=== PATIENT | male | born 1985 | race Caucasian/White ===

== ENCOUNTER 2017-12-24 18:59 | Inpatient (IN) | payer OTHER ==
[~2017-12-24] VITALS: Ht 188 cm; Wt 82.0 kg
[2017-12-24 19:10] VITALS: BP 154/84; PULSE 106; RESP 18; TEMP 98.6; O2SAT 99
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
[2017-12-24] MEDS ORDERED: KETOROLAC TROMETHAMINE 60 MG/2 ML (IM) VIAL IM ONE (20:15)
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
[2017-12-24] MEDS ORDERED: SENNOSIDES 8.6 MG TAB PO PRN (22:45)
[2017-12-24] MEDS ORDERED: BISACODYL 10 MG SUPP RECTAL PRN (22:45)
[2017-12-24] MEDS ORDERED: MAGNESIUM HYDROXIDE SUSP 30 ML CUP PO PRN (22:45)
[2017-12-24] MEDS ORDERED: SODIUM CHLORIDE 0.9% FLUSH 10 ML FLUSH IV FLUSH PRN (22:45)
[2017-12-24] MEDS ORDERED: LACTULOSE SYRUP 20 GM/30 ML CUP PO PRN (22:45)
[2017-12-24] MEDS ORDERED: ACETAMINOPHEN 1000 MG/100 ML 100 ML IV PRN (22:45)
[2017-12-24 22:49] LABS: BICARBONATE 22.3 MEQ/L (21.0-32.0); CALCIUM 9.6 MG/DL (8.5-10.1); CREATININE 1.12 MG/DL (0.60-1.30)
[2017-12-24 22:52] LABS: AUTOMATED NEUTROPHIL # 14.1 TH/MM3 (1.8-7.7); BASOPHIL % 0.3 % (0.0-2.0); EOSINOPHIL % 0.1 % (0.0-4.0); HEMATOCRIT 46.1 % (39.0-51.0); HEMOGLOBIN 15.4 GM/DL (13.0-17.0); LYMPH % 7.7 % (9.0-44.0); LYMPHOCYTE # 1.3 TH/MM3 (1.0-4.8); MEAN CELL VOLUME 80.8 FL (80.0-100.0); MEAN CORPUSCULAR HGB CONC 33.5 % (32.0-36.0); MEAN PLATELET VOLUME 7.9 FL (7.0-11.0); MONO % 5.3 % (0.0-8.0); MONOCYTE # 0.9 TH/MM3 (0-0.9); NEUT % 86.6 % (16.0-70.0); PLATELET COUNT 341 TH/MM3 (150-450); RED BLOOD COUNT 5.71 MIL/MM3 (4.50-5.90); WHITE BLOOD COUNT 16.3 TH/MM3 (4.0-11.0)
[2017-12-24] MEDS ORDERED: MORPHINE SULFATE 4 MG/ML INJ IV PUSH PRN (23:00)
[2017-12-24 23:13] LABS: INTERNATIONAL NORMALIZED RATIO 1.1 RATIO
[2017-12-24 23:37] VITALS: BP 154/94; PULSE 89; RESP 18; TEMP 97.1; O2SAT 98
[2017-12-24] MEDS ORDERED: LACTATED RINGER'S 1000 ML IV PRN (23:45)
[2017-12-24] MEDS ORDERED: SODIUM CHLORID 0.9% 500 ML IV PRN (23:45)
[2017-12-24] MEDS ORDERED: POVIDONE IODINE 5% (ANTISEPSIS KIT) 4 APPLICATIONS EACH NARE PRN (23:45)
[2017-12-24] MEDS ORDERED: CHLORHEXIDINE GLUCONATE 2 % 1 PACK (2 CLOTHS) TOPICAL PRN (23:45)
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
[2017-12-25] MEDS: SODIUM CHLOR 0.9% 1000 ML INJ 1,000 ML IV SCH ×3 (00:33→18:40)
[2017-12-25] MEDS: MORPHINE SULFATE 4 MG/ML INJ IV PUSH PRN ×6 (00:44→23:22)
[2017-12-25 03:35] VITALS: BP 151/83; PULSE 81; RESP 18; TEMP 98.6; O2SAT 98
[2017-12-25] MEDS: SODIUM CHLORIDE 0.9% FLUSH 10 ML FLUSH IV FLUSH SCH ×2 (07:28→20:30)
[2017-12-25] MEDS: DOCUSATE SODIUM 50 MG/SENNA 8.6 MG TAB PO SCH ×2 (07:29→20:28)
[2017-12-25 08:00] VITALS: BP 122/70; PULSE 79; RESP 16; TEMP 97.7; O2SAT 99
[2017-12-25 08:10] LABS: AUTOMATED NEUTROPHIL # 7.7 TH/MM3 (1.8-7.7); BASOPHIL # 0.1 TH/MM3 (0-0.2); BASOPHIL % 0.5 % (0.0-2.0); EOSINOPHIL # 0.1 TH/MM3 (0-0.4); EOSINOPHIL % 0.5 % (0.0-4.0); HEMATOCRIT 42.9 % (39.0-51.0); HEMOGLOBIN 14.3 GM/DL (13.0-17.0); LYMPH % 16.5 % (9.0-44.0); LYMPHOCYTE # 1.8 TH/MM3 (1.0-4.8); MEAN CELL VOLUME 82.5 FL (80.0-100.0); MEAN CORPUSCULAR HEMOGLOBIN 27.5 PG (27.0-34.0); MEAN CORPUSCULAR HGB CONC 33.3 % (32.0-36.0); MEAN PLATELET VOLUME 7.9 FL (7.0-11.0); MONO % 12.8 % (0.0-8.0); MONOCYTE # 1.4 TH/MM3 (0-0.9); NEUT % 69.7 % (16.0-70.0); PLATELET COUNT 287 TH/MM3 (150-450); RED CELL DISTRIBUTION WIDTH 13.6 % (11.6-17.2)
[2017-12-25 08:54] LABS: ALBUMIN 3.8 GM/DL (3.4-5.0); AST (GOT) 9 U/L (15-37); BICARBONATE 24.9 MEQ/L (21.0-32.0); BLOOD UREA NITROGEN 9 MG/DL (7-18); CALCIUM 9.1 MG/DL (8.5-10.1); CHLORIDE 108 MEQ/L (98-107); CREATININE 1.01 MG/DL (0.60-1.30); GLOMERULAR FILTRATION RATE 86 ML/MIN (>89); GLUCOSE,RANDOM 85 MG/DL (74-106); SODIUM (NA) 142 MEQ/L (136-145)
[2017-12-25 09:00] LABS: ALKALINE PHOSPHATASE 65 U/L (45-117); ALT (GPT) 20 U/L (12-78); TOTAL BILIRUBIN ADULT 1.2 MG/DL (0.2-1.0); TOTAL PROTEIN 7.1 GM/DL (6.4-8.2)
[2017-12-25 12:00] VITALS: BP 148/97; PULSE 77; RESP 16; TEMP 97.6; O2SAT 98
[2017-12-25] MEDS: METOCLOPRAMIDE HCL 10 MG/2 ML VIAL IV PUSH PRN (12:48)
[2017-12-25] MEDS ORDERED: ACETAMINOPHEN/HYDROcodone 325 MG/5 MG TAB PO PRN (13:15)
[2017-12-25] MEDS ORDERED: hydrOXYzine HCL 10 MG TAB PO PRN (13:15)
[2017-12-25] MEDS ORDERED: ONDANSETRON ODT 4 MG TAB PO PRN (13:15)
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
[2017-12-25] MEDS: ACETAMINOPHEN/HYDROcodone 325 MG/7.5 MG TAB PO PRN ×2 (14:46→20:30)
[2017-12-25 16:00] VITALS: BP 129/81; PULSE 75; RESP 16; TEMP 98.2; O2SAT 99
[2017-12-25 19:33] VITALS: BP 141/79; PULSE 65; RESP 18; TEMP 98.3; O2SAT 100
[2017-12-25 23:16] VITALS: BP 129/64; PULSE 67; RESP 18; TEMP 98.2; O2SAT 100
[2017-12-26] MEDS: ACETAMINOPHEN/HYDROcodone 325 MG/7.5 MG TAB PO PRN (02:33)
[2017-12-26] MEDS: SODIUM CHLOR 0.9% 1000 ML INJ 1,000 ML IV SCH ×2 (03:23→13:40)
[2017-12-26 04:06] VITALS: BP 120/64; PULSE 68; RESP 18; TEMP 98.4; O2SAT 100
[2017-12-26] MEDS ORDERED: BUPIVACAINE/EPINEPHRINE 0.5% PF 10 ML VIAL ONE (07:18)
[2017-12-26] MEDS: DOCUSATE SODIUM 50 MG/SENNA 8.6 MG TAB PO SCH ×2 (07:18→21:00)
[2017-12-26] MEDS: MORPHINE SULFATE 4 MG/ML INJ IV PUSH PRN ×4 (07:29→20:03)
[2017-12-26] MEDS ORDERED: OXYMETAZOLINE HCL 0.05% 15 ML NASAL SPRAY ONE (07:35)
[2017-12-26] MEDS ORDERED: CHLORHEXIDINE GLUCONATE 0.12% 15 ML CUP ONE (07:40)
[2017-12-26 08:00] VITALS: BP 124/67; PULSE 61; RESP 18; TEMP 98; O2SAT 100
[2017-12-26] MEDS: SODIUM CHLORIDE 0.9% FLUSH 10 ML FLUSH IV FLUSH SCH ×2 (09:00→13:40)
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
[2017-12-26] MEDS ORDERED: ceFAZolin 2 GM PREMIX 50 ML ONE (10:19)
[2017-12-26] MEDS ORDERED: MUPIROCIN 2% OINT 22 GM TUBE ONE (11:14)
[2017-12-26] MEDS ORDERED: LIDOCAINE HCL 1% PF 5 ML SYRINGE OTHER ONE (12:00)
[2017-12-26] MEDS ORDERED: ONDANSETRON HCL 4 MG/2 ML VIAL IV PUSH ONE (12:00)
[2017-12-26] MEDS ORDERED: ESMOLOL HCL 100 MG/10 ML VIAL IV ONE (12:00)
[2017-12-26] MEDS ORDERED: PROPOFOL 200 MG/20 ML AMP IV ONE (12:00)
[2017-12-26] MEDS ORDERED: ROCURONIUM INJ 50 MG/5 ML SYRINGE IV PUSH ONE (12:00)
[2017-12-26] MEDS ORDERED: DEXAMETHASONE SOD PHOS 4 MG/ML VIAL IV ONE (12:00)
[2017-12-26] MEDS ORDERED: *morphine SULFATE 10 MG/ML PERIprocedure ONLY ONE (12:16)
[2017-12-26] MEDS ORDERED: MIDAZOLAM HCL 2 MG/2 ML VIAL ONE (12:25)
[2017-12-26] MEDS ORDERED: DO NOT ADM ANY ANTICOAGULANT DRUGS PRN (12:30)
[2017-12-26] MEDS: METOCLOPRAMIDE HCL 10 MG/2 ML VIAL IV PUSH PRN ×2 (13:39→21:49)
[2017-12-26] MEDS ORDERED: ACETAMINOPHEN 325 MG/10.15 ML UDC PO PRN (16:15)
[2017-12-26] MEDS: oxyCODONE HCL ORAL CONC 5 MG/0.25 ML SYRINGE PO PRN ×2 (16:34→21:48)
[2017-12-26] MEDS: ACETAMINOPHEN 650 MG/20.3 ML UDC PO PRN ×2 (16:35→21:48)
[2017-12-26 20:20] VITALS: BP 143/87; PULSE 89; RESP 18; TEMP 98.3; O2SAT 98
[2017-12-26 23:30] VITALS: BP 132/74; PULSE 77; RESP 18; TEMP 98; O2SAT 96
[2017-12-27] MEDS: MORPHINE SULFATE 4 MG/ML INJ IV PUSH PRN ×2 (00:17→06:00)
[2017-12-27] MEDS: SODIUM CHLOR 0.9% 1000 ML INJ 1,000 ML IV SCH ×2 (00:40→07:29)
[2017-12-27] MEDS: ACETAMINOPHEN 650 MG/20.3 ML UDC PO PRN ×3 (02:22→12:10)
[2017-12-27] MEDS: oxyCODONE HCL ORAL CONC 5 MG/0.25 ML SYRINGE PO PRN ×3 (02:22→12:11)
[2017-12-27 03:11] VITALS: BP 127/87; PULSE 75; RESP 18; TEMP 99.4; O2SAT 97
[2017-12-27] MEDS: DOCUSATE SODIUM 50 MG/SENNA 8.6 MG TAB PO SCH (07:26)
[2017-12-27] MEDS: SODIUM CHLORIDE 0.9% FLUSH 10 ML FLUSH IV FLUSH SCH (07:26)
[2017-12-27 08:00] VITALS: BP 130/98; PULSE 76; RESP 18; TEMP 97.6; O2SAT 95
[2017-12-27 08:02] LABS: BICARBONATE 27.3 MEQ/L (21.0-32.0); CALCIUM 9.9 MG/DL (8.5-10.1); CREATININE 1.04 MG/DL (0.60-1.30); MAGNESIUM 2.2 MG/DL (1.5-2.5)
[2017-12-27] MEDS ORDERED: oxyCODONE LIQ PO (11:26)
[2017-12-27] MEDS ORDERED: ACET650S PO (11:26)
[2017-12-27] MEDS ORDERED: ZOFR4TAB3 SL (11:32)
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
[2017-12-27] MEDS ORDERED: OXYC1SOL3 PO (14:00)
[2017-12-28] MEDS ORDERED: OXYC1SOL3 PO (01:35)
[2017-12-28] MEDS ORDERED: AUGM875T3 PO (01:35)
--- NOTE | 2018-01-05 16:13 | PD.OP ---
Operative Report Date of Surgery: Dec 26, 2017 Preoperative Diagnosis: (1) Mandibular fracture Postoperative Diagnosis: (1) Mandibular fracture Procedure: See below Surgeon: Finesse Desir [employer] Estimator(s): . Operation and Findings: Operative Report Date of Surgery: Dec 26, 2017 Preoperative Diagnosis: (1) Mandibular fracture Postoperative Diagnosis: (1) Mandibular fracture Procedure: Maxillomandibular fixation (82572) Surgeon: Finesse Desir [employer] Estimator(s): . Operation and Findings: 32-year-old male who presents with a left subcondylar and right parasymphyseal mandibular fracture. Risks benefits and alternative treatments discussed. All questions answered and the patient expressed understanding. Patient elected to assume the risks of mandibulomaxillary fixation using arch bars. Informed consent obtained. Patient was given antibiotics on-call to the operating room. Patient was taken to the operating room. All pressure points were padded. A surgical timeout was performed. After the smooth induction of nasotracheal anesthesia, bilateral mental and infraorbital nerves were blocked. The surgical site was prepped and draped in the usual sterile fashion. Following this a hybrid MMF arch bar was cut and contoured. Hybrid MMF system was chosen given the patient's multiple loose teeth. The upper arch bar was secured using monocortical screws placed with care to avoid injuring the tooth roots. The lower arch bar was placed in the same fashion. Following this the patient was brought into occlusion and fixed using dental elastics. All needle sponge and instrument counts were correct 2. The patient was awoken from anesthesia and arrived stable and doing well to the PACU. Finesse Desir MD Jan 05, 2018 16:13
== END 2017-12-27 12:26 | disposition home or self-care (01) | DRG 159 ==
LOC: NEPD 18:59 → NEDA 22:25 → N06B 23:21
PROVIDERS: ADMIT Hospitalist; ATTEND Hospitalist
PROC: 0NST35Z Reposition Right Mandible with External Fixation Device, Percutaneous Approach (ICD-10-PCS; 2017-12-26)
PROC: 0NSV35Z Reposition Left Mandible with External Fixation Device, Percutaneous Approach (ICD-10-PCS; 2017-12-26)
PROC: 3E0T3BZ Introduction of Anesthetic Agent into Peripheral Nerves and Plexi, Percutaneous Approach (ICD-10-PCS; principal; 2017-12-26 10:32)
DX: S02.69XA Fracture of mandible of other specified site, initial encounter for closed fracture (principal); I10 Essential (primary) hypertension; Y04.2XXA Assault by strike against or bumped into by another person, initial encounter; F17.210 Nicotine dependence, cigarettes, uncomplicated
CPT/HCPCS: 70450; 70486; 80048; 80053; 83735; 85025; 85610; 85730; 96372; C1713; J0690; J1100; J1885; J2250; J2270; J2405; J2765; J3010; J7030

== ENCOUNTER 2017-12-27 21:43 | Emergency (ER) | payer SELFPAY ==
[~2017-12-27] VITALS: Ht 188 cm; Wt 80.0 kg
[~2017-12-27 21:43] MED LIST: ACET650S PO; OXYC1SOL3 PO; ZOFR4TAB3 SL; oxyCODONE LIQ PO
[2017-12-27 21:54] VITALS: BP 156/99; PULSE 80; RESP 20; TEMP 98.8; O2SAT 99
[2017-12-27] MEDS ORDERED: SODIUM CHLORID 0.9% 500 ML INJ 500 ML IV ONE (22:45)
[2017-12-27] MEDS ORDERED: MORPHINE SULFATE 4 MG/ML INJ IV PUSH ONE (22:45)
[2017-12-27] MEDS ORDERED: METOCLOPRAMIDE HCL 10 MG/2 ML VIAL IV PUSH ONE (22:45)
--- NOTE | 2017-12-27 23:05 | PD ---
HPI Chief Complaint: Cold / Flu Symptoms Time Seen by Provider: 22:19 Travel History International Travel<30 days: No Contact w/Intl Traveler<30days: No Traveled to known affect area: No History of Present Illness HPI The patient is a 32 year old male who presents to the [facility] emergency department with a history of increased jaw pain and reported swelling of the lower jaw that began after discharge from the hospital earlier today. The patient was admitted and had surgery yesterday for a bilateral mandible fracture. The patient underwent surgery by . The patient was discharged home with a prescription for Tylenol liquid, and oxycodone liquid. He was instructed to take 5 mL every 4 hours as needed for pain. The patient reports that he last took pain medication at 8 PM. He reports that he took a shower when he got home and blew his nose. He reports that he does have nasal congestion which makes him feel short of breath. He denies having any purulent nasal discharge. The patient reports that he has been icing the area of swelling is recommended 20 minutes on 20 minutes off for his discharge instructions. He denies having any fevers. He denies having any purulent nasal discharge. He reports having pain around each of the screws in his jaw, otherwise he has no dental pain. On review of systems otherwise, the patient denies having any cough, neck pain, chest pain, shortness of breath, abdominal pain, vomiting, diarrhea, urinary symptoms, or neurologic symptoms. [facility] Past Medical History Narrative Medical The patient's past medical history is reportedly none. Past Surgical History Narrative Surgical The patient's past surgical history is significant for jaw wiring postop day #1 Social History Alcohol Use: Yes (RARELY) Tobacco Use: Yes (1 PPD) Substance Use: No Allergies-Medications (Allergen,Severity, Reaction): Coded Allergies: No Known Allergies (Unverified , 12/27/17) Reported Meds & Prescriptions Reported Meds & Active Scripts Active Oxycodone Liq (Oxycodone HCl) 5 Mg/5 Ml Haleigh 5 Mg PO Q4HR PRN Zofran Odt (Ondansetron Odt) 4 Mg Tab 4 Mg SL Q6HR PRN Acetaminophen 650 Mg/20.3 Ml Solution 325 Mg PO Q4H PRN please combine the tylenol 325mg/10.15ml po q4hrs prn with the oxycodone 5mg/0.25ml q4hrs Review of Systems Except as stated in HPI: all other systems reviewed are Neg General / Constitutional: No: Fever Eyes: No: Visual changes HENT: Positive: Congestion, Other (Swelling of the jaw), No: Headaches Cardiovascular: No: Chest Pain or Discomfort Respiratory: No: Shortness of Breath Gastrointestinal: No: Nausea, Vomiting, Diarrhea, Abdominal Pain Genitourinary: No: Dysuria Musculoskeletal: No: Pain Skin: No Rash Neurologic: No: Weakness, Focal Abnormalities, Change in Mentation, Slurred Speech, Sensory Disturbance Psychiatric: No: Depression Endocrine: No: Polydipsia Hematologic/Lymphatic: No: Easy Bruising Physical Exam Narrative General: The patient is a well-developed well-nourished male in no acute distress. Head and Neck exam: Head is normocephalic atraumatic. Eyes: EOMI, pupils are equal round and reactive to light. Nose: Midline septum with pink mucous membranes Mouth: Patient is noted to have areas of dental decay, jaw wiring is noted making it difficult to visualize into his mouth. The patient is noted to be able to wiggle his tongue behind his teeth and no significant swelling is noted of his tongue. Moist mucus membranes. Posterior oropharynx is not able to be visualized. Neck: No palpable lymphadenopathy. No nuchal rigidity. No thyromegaly. No palpable firmness or swelling underneath the mentum in the soft tissues. No significant swelling along the jawline. Cardiovascular: Regular rate and rhythm without murmurs, gallops, or rubs. No pulse deficit to the extremities on simultaneous auscultation and palpation of his radial artery. Lungs: Clear to auscultation bilaterally. No wheezes, rhonchi, or rales. Abdomen: Soft, without tenderness to palpation in all 4 quadrants of the abdomen. No guarding, rebound, or rigidity. Normal bowel sounds are audible. No tenderness on palpation of McBurney's point. Extremities: No clubbing, cyanosis, or edema. 2+ pulses in all 4 extremities. No calf tenderness on palpation. Back: No costovertebral angle tenderness to palpation. Neurologic Exam: Grossly nonfocal. Skin Exam: No rash noted. Intact skin that is warm and dry. Data Data Last Documented VS Vital Signs Date Time Temp Pulse Resp B/P (MAP) Pulse Ox O2 Delivery O2 Flow Rate FiO2 12/27/17 21:54 98.8 80 20 156/99 (118) 99 Orders Orders Complete Blood Count With Diff (12/27/17 22:32) Basic Metabolic Panel (Bmp) (12/27/17 22:32) Iv Access Insert/Monitor (12/27/17 22:32) Ecg Monitoring (12/27/17 22:32) Oximetry (12/27/17 22:32) Ice/Cold Pack (12/27/17 22:32) Sodium Chlorid 0.9% 500 Ml Inj (Ns 500 M (12/27/17 22:45) Morphine Inj (Morphine Inj) (12/27/17 22:45) Metoclopramide Inj (Reglan Inj) (12/27/17 22:45) Ct Facial Bones W Iv Contrast (12/28/17 ) Ketorolac Inj (Toradol Inj) (12/28/17 01:30) Iohexol 350 Inj (Omnipaque 350 Inj) (12/28/17 01:31) Labs Laboratory Tests Test 12/27/17 23:35 White Blood Count 9.1 TH/MM3 Red Blood Count 5.55 MIL/MM3 Hemoglobin 15.4 GM/DL Hematocrit 45.7 % Mean Corpuscular Volume 82.3 FL Mean Corpuscular Hemoglobin 27.7 PG Mean Corpuscular Hemoglobin Concent 33.6 % Red Cell Distribution Width 13.7 % Platelet Count 307 TH/MM3 Mean Platelet Volume 7.9 FL Neutrophils (%) (Auto) 55.8 % Lymphocytes (%) (Auto) 31.5 % Monocytes (%) (Auto) 10.5 % Eosinophils (%) (Auto) 1.0 % Basophils (%) (Auto) 1.2 % Neutrophils # (Auto) 5.1 TH/MM3 Lymphocytes # (Auto) 2.9 TH/MM3 Monocytes # (Auto) 1.0 TH/MM3 Eosinophils # (Auto) 0.1 TH/MM3 Basophils # (Auto) 0.1 TH/MM3 CBC Comment DIFF FINAL Differential Comment Blood Urea Nitrogen 7 MG/DL Creatinine 1.09 MG/DL Random Glucose 90 MG/DL Calcium Level 9.6 MG/DL Sodium Level 142 MEQ/L Potassium Level 3.9 MEQ/L Chloride Level 105 MEQ/L Carbon Dioxide Level 27.8 MEQ/L Anion Gap 9 MEQ/L Estimat Glomerular Filtration Rate 79 ML/MIN MDM Medical Decision Making Medical Screen Exam Complete: Yes Emergency Medical Condition: Yes Medical Record Reviewed: Yes Differential Diagnosis Postop hematoma, versus normal postoperative healing with swelling, versus infectious process Narrative Course During the course of the patient's emergency department visit, the patient's history, examination, and differential diagnosis were reviewed with the patient. The patient was placed on a cardiac tech with oximetry and frequent blood pressure monitoring. The patient had IV access obtained and blood work sent for analysis. The patient will have a CT scan of the soft tissues, facial bones with IV contrast. The patient was initially provided normal saline IV fluids, morphine for pain, Reglan for nausea. The patient was provided an ice pack for his jaw. The patient's laboratory studies were reviewed and remarkable for a white count of 9.1, hemoglobin 15.4, platelets 307 with 10.5- monocytes, basic metabolic profile is remarkable for GFR 79. Radiology studies were reviewed and remarkable for Last Impressions Maxillofacial CT 12/28/17 0000 Signed Impressions: CONCLUSION: 1. 2 fractures of the mandible. Mandible is fractured anteriorly on the right and just below the mandibular condyle on the left. 2. Ethmoid sinuses left greater than right The patient is instructed to continue the Tylenol syrup as previously recommended. The patient is instructed to increase the oxycodone syrup dose to 10 mg p.o. every 4 hours as needed for breakthrough pain. The patient has sinusitis noted on his CT, no soft tissue swelling. The patient will have antibiotic added onto his current regimen. The patient was given a prescription for Augmentin. He is instructed to follow-up with his primary care physician and maxillofacial surgeon as previously recommended. The patient is resting comfortably and feels better, is alert and in no distress. The patient's results and examination findings were discussed with the patient. The repeat examination is unremarkable and benign. The history, exam, diagnostic testing, and current condition do not suggest any significant pathology to warrant further testing, continued ED treatment, admission, or surgical evaluation at this point. The vital signs have been stable. The patient does not have uncontrollable pain, intractable vomiting, or other significant symptoms. The patient's condition is stable and appropriate for discharge. The patient will pursue further outpatient evaluation with a primary care physician or other designated or consulting physician as indicated in the discharge instructions. The patient is instructed to report back to the emergency department immediately for reexamination in the mean time if he/ she develops any new or worsening signs or symptoms. The patient expressed understanding and was agreeable with this plan. Diagnosis Primary Impression: Mandibular fracture Qualified Codes: S02.609D - Fracture of mandible, unspecified, subsequent encounter for fracture with routine healing Additional Impression: Post-op pain Referrals: Finesse Bryan MD 1 week Primary Care Physician 1 week Patient Instructions: General Instructions, Jaw Fracture in Adults (ED) Additional Instructions: The patient is instructed to continue the Tylenol syrup as previously recommended. The patient is instructed to increase the oxycodone syrup dose to 10 mg p.o. every 4 hours as needed for breakthrough pain. The patient has sinusitis noted on his CT. The patient will have antibiotic added onto his current regimen. The patient was given a prescription for Augmentin. He is instructed to follow-up with his primary care physician and maxillofacial surgeon as previously recommended. Med/Other Pt SpecificInfo: Prescription(s) given Scripts Amoxicillin-Clavulanate (Augmentin) 875-125 Mg Tab 1 TAB PO BID for Infection, #14 TAB 0 Refills Prov: Betty Mendiola MD 12/28/17 Oxycodone Liq (Oxycodone Liq) 5 Mg/5 Ml Haleigh 10 MG PO Q4HR Y for PAIN SCALE 6 TO 10, #60 ML 0 Refills Prov: Betty Mendiola MD 12/28/17 Disposition: 01 DISCHARGE HOME Condition: Stable Betty Mendiola MD Dec 27, 2017 23:05
[2017-12-27 23:57] LABS: AUTOMATED NEUTROPHIL # 5.1 TH/MM3 (1.8-7.7); BASOPHIL # 0.1 TH/MM3 (0-0.2); BASOPHIL % 1.2 % (0.0-2.0); EOSINOPHIL # 0.1 TH/MM3 (0-0.4); HEMATOCRIT 45.7 % (39.0-51.0); HEMOGLOBIN 15.4 GM/DL (13.0-17.0); LYMPH % 31.5 % (9.0-44.0); LYMPHOCYTE # 2.9 TH/MM3 (1.0-4.8); MEAN CELL VOLUME 82.3 FL (80.0-100.0); MEAN CORPUSCULAR HEMOGLOBIN 27.7 PG (27.0-34.0); MEAN CORPUSCULAR HGB CONC 33.6 % (32.0-36.0); MEAN PLATELET VOLUME 7.9 FL (7.0-11.0); MONO % 10.5 % (0.0-8.0); NEUT % 55.8 % (16.0-70.0); PLATELET COUNT 307 TH/MM3 (150-450); RED BLOOD COUNT 5.55 MIL/MM3 (4.50-5.90); RED CELL DISTRIBUTION WIDTH 13.7 % (11.6-17.2); WHITE BLOOD COUNT 9.1 TH/MM3 (4.0-11.0)
[2017-12-28 00:18] LABS: BICARBONATE 27.8 MEQ/L (21.0-32.0); CALCIUM 9.6 MG/DL (8.5-10.1); CREATININE 1.09 MG/DL (0.60-1.30)
--- NOTE | 2017-12-28 01:28 | RADRPT ---
EXAM DATE: 12/28/2017 1:19 AM EDT AGE/SEX: 32 years / Male INDICATIONS: Trauma; increased pain after jaw surgery. CLINICAL DATA: This is the patient's initial encounter. Patient reports that signs and symptoms have been present for 1 day and indicates a pain score of 7/10. MEDICAL/SURGICAL HISTORY: None. . jaw RADIATION DOSE: 57.01 CTDI (mGy) COMPARISON: No prior exams available for comparison. TECHNIQUE: Contiguous images in the axial and coronal planes were obtained using helical multirow de tector technique with 75 ml Omnipaque 350 (iohexol) nonionic water-soluble contrast as a single exam dose. Using automated exposure control and adjustment of the mA and/or kV according to patient size , radiation dose was kept as low as reasonably achievable to obtain optimal diagnostic quality images . DICOM format image data is available electronically for review and comparison. FINDINGS: There is a fracture just below the left neck of the mandibular condyle and a fracture anter iorly on the right side of the mandible. Orbits: The orbital and infraorbital osseous structures are intact. The retroconal structures have a normal configuration. No radiopaque foreign bodies are seen. Nasal Bone: The nasal bone and maxillary spine are intact. Zygomatic Arches: Symmetric without evidence of fracture. Sinuses: Mild ethmoidal sinus disease. Nasal Cavity: The nasal septum is intact and midline. The lacrimal ducts are intact. Soft Tissues: No radiopaque foreign bodies seen. No soft-tissue swelling is seen. Intracranial: No intracranial air seen. Cribriform Plate: Grossly intact. Post Contrast: No abnormal areas of enhancement seen. CONCLUSION: 1. 2 fractures of the mandible. Mandible is fractured anteriorly on the right and just below the man dibular condyle on the left. 2. Ethmoid sinuses left greater than right Electronically signed by: Dwight Rao MD 12/28/2017 1:27 AM EDT
[2017-12-28] MEDS ORDERED: KETOROLAC TROMETHAMINE 30 MG/ML (IVP) VIAL IV PUSH ONE (01:30)
[2017-12-28] MEDS ORDERED: IOHEXOL 350 MG/ML 10 ML VIAL (for RAD DIAG) IVCONTRAST ONE (01:31)
[2017-12-28] MEDS ORDERED: OXYC1SOL3 PO (01:35)
[2017-12-28] MEDS ORDERED: AUGM875T3 PO (01:35)
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
--- NOTE | 2017-12-29 15:09 | PD.OP ---
Operative Report Date of Surgery: Dec 26, 2017 Preoperative Diagnosis: (1) Mandibular fracture Postoperative Diagnosis: (1) Mandibular fracture Procedure: Maxillomandibular fixation (44890) Surgeon: Finesse Desir Front Office Medical Assistant(s): . Operation and Findings: 32-year-old male who presents with a left subcondylar and right parasymphyseal mandibular fracture. Risks benefits and alternative treatments discussed. All questions answered and the patient expressed understanding. Patient elected to assume the risks of mandibulomaxillary fixation using arch bars. Informed consent obtained. Patient was given antibiotics on-call to the operating room. Patient was taken to the operating room. All pressure points were padded. A surgical timeout was performed. After the smooth induction of nasotracheal anesthesia, bilateral mental and infraorbital nerves were blocked. The surgical site was prepped and draped in the usual sterile fashion. Following this a hybrid MMF arch bar was cut and contoured. Hybrid MMF system was chosen given the patient's multiple loose teeth. The upper arch bar was secured using monocortical screws placed with care to avoid injuring the tooth roots. The lower arch bar was placed in the same fashion. Following this the patient was brought into occlusion and fixed using dental elastics. All needle sponge and instrument counts were correct 2. The patient was awoken from anesthesia and arrived stable and doing well to the PACU. Finesse Desir MD Dec 29, 2017 15:09
== END 2017-12-28 02:42 | disposition home or self-care (01) ==
LOC: NEPE 21:43
DX: S02.609D Fracture of mandible, unspecified, subsequent encounter for fracture with routine healing (principal); G89.18 Other acute postprocedural pain; R09.81 Nasal congestion; F17.200 Nicotine dependence, unspecified, uncomplicated; Z98.890 Other specified postprocedural states; X58.XXXD Exposure to other specified factors, subsequent encounter
CPT/HCPCS: 70487; 80048; 85025; 96361; 96374; 96375; 99285; J1885; J2270; J2765; J7040; Q9967

== ENCOUNTER 2017-12-31 15:21 | Emergency (ER) | payer SELFPAY ==
[~2017-12-31] VITALS: Ht 188 cm; Wt 80.0 kg
[~2017-12-31 15:21] MED LIST changes: +AUGM875T3 PO; -oxyCODONE LIQ PO
[2017-12-31 15:35] VITALS: BP 134/76; PULSE 99; RESP 16; TEMP 98.6; O2SAT 99
[2017-12-31] MEDS ORDERED: OXYC1SOL3 PO (18:07)
[2017-12-31] MEDS ORDERED: AUGM400S PO (18:07)
--- NOTE | 2017-12-31 18:32 | PD ---
HPI Chief Complaint: Asphalt Worker Problem Time Seen by Provider: 16:42 Travel History International Travel<30 days: No Contact w/Intl Traveler<30days: No Traveled to known affect area: No History of Present Illness HPI This patient had recent surgery for maxillofacial fractures. He has hardware holding his jaw together. He left the hospital 4 days ago. He has been taking Augmentin but the pills are large and he finds them difficult to swallow as his jaw is rubberbanded shut. He has run out of pain medication and is requesting more. He is taking it as prescribed. He was given a 3 day supply. Symptoms are moderately severe. Denies fever. No alleviating factors PFSH Past Medical History Diminished Hearing: No Tetanus Vaccination: < 5 Years Influenza Vaccination: No Social History Alcohol Use: Yes (RARELY) Tobacco Use: No Substance Use: No Allergies-Medications (Allergen,Severity, Reaction): Coded Allergies: No Known Allergies (Unverified , 12/27/17) Reported Meds & Prescriptions Reported Meds & Active Scripts Active Augmentin-400 Liq (Amoxicillin-Clavulanate Liq) 400-57 Mg/5 Ml Susp 800 Mg PO BID 5 Days 400 mg (5 mL). Take for 10 days. Oxycodone Liq (Oxycodone HCl) 5 Mg/5 Ml Haleigh 10 Mg PO Q4HR PRN Augmentin (Amoxicillin-Clavulanate) 875-125 Mg Tab 1 Tab PO BID Zofran Odt (Ondansetron Odt) 4 Mg Tab 4 Mg SL Q6HR PRN Acetaminophen 650 Mg/20.3 Ml Solution 325 Mg PO Q4H PRN please combine the tylenol 325mg/10.15ml po q4hrs prn with the oxycodone 5mg/0.25ml q4hrs Review of Systems General / Constitutional: No: Fever Eyes: No: Visual changes HENT: No: Headaches Cardiovascular: No: Chest Pain or Discomfort Respiratory: No: Shortness of Breath Gastrointestinal: No: Abdominal Pain Genitourinary: No: Dysuria Musculoskeletal: Positive: Pain Skin: No Rash Neurologic: No: Weakness Psychiatric: No: Depression Endocrine: No: Polydipsia Hematologic/Lymphatic: No: Easy Bruising Physical Exam Narrative GENERAL: Well-nourished, well-developed patient in no apparent distress. SKIN: Focused skin assessment reveals no rash and nodules. Skin is Warm and dry. HEAD: Atraumatic. Normocephalic. EYES: Pupils equal and round. No scleral icterus. No injection or drainage. ENT: No nasal bleeding or discharge. Mucous membranes pink and moist. Examination oral cavity reveals that he has hardware in the upper and lower jaw. Rubber bands are keeping his mouth shut for the most part. He can speak and swallow liquids. No active bleeding. NECK: Trachea midline. No JVD. CARDIOVASCULAR: Regular rate and rhythm. No murmur appreciated. RESPIRATORY: No accessory muscle use. Clear to auscultation. Breath sounds equal bilaterally. GASTROINTESTINAL: Abdomen soft, non-tender, nondistended. Hepatic and splenic margins not palpable. MUSCULOSKELETAL: No obvious deformities. No clubbing. No cyanosis. No edema. NEUROLOGICAL: Awake and alert. No obvious cranial nerve deficits. Motor grossly within normal limits. Normal speech. PSYCHIATRIC: Appropriate mood and affect; insight and judgment normal. Data Data Last Documented VS Vital Signs Date Time Temp Pulse Resp B/P (MAP) Pulse Ox O2 Delivery O2 Flow Rate FiO2 12/31/17 15:55 18 99 Room Air 12/31/17 15:35 98.6 99 134/76 (95) MDM Medical Decision Making Medical Screen Exam Complete: Yes Emergency Medical Condition: Yes Medical Record Reviewed: Yes Differential Diagnosis Postsurgical pain, gingivitis, sinusitis Narrative Course I have reviewed the patient's electronic medical record. Reviewed his operative note from a few days ago I have refilled 3 days of pain medication. He just had surgery for jaw fractures and I am sure has significant pain. I have changed his Augmentin to a liquid so he can get it down. Follow-up with the surgeon is recommended Diagnosis Primary Impression: Postoperative pain Additional Impression: Sinusitis Qualified Codes: J01.90 - Acute sinusitis, unspecified Additional Instructions: The patient was warned about potential sedation for the medications they will receive on prescription. Follow-up with maxillofacial surgeon Med/Other Pt SpecificInfo: Prescription(s) given Scripts Amoxicillin-Clavulanate Liq (Augmentin-400 Liq) 400-57 Mg/5 Ml Susp 800 MG PO BID for Infection for 5 Days, #100 ML 0 Refills 400 mg (5 mL). Take for 10 days. Prov: Hari Merino MD 12/31/17 Oxycodone Liq (Oxycodone Liq) 5 Mg/5 Ml Haleigh 10 MG PO Q4HR Y for PAIN SCALE 6 TO 10, #60 ML 0 Refills Prov: Hari Merino MD 12/31/17 Disposition: 01 DISCHARGE HOME Condition: Stable Hari Merino MD Dec 31, 2017 18:32
== END 2017-12-31 18:50 | disposition home or self-care (01) ==
LOC: NEPE 15:21
DX: G89.18 Other acute postprocedural pain (principal); J01.90 Acute sinusitis, unspecified
CPT/HCPCS: 99281